=== PATIENT | female | born 1980 | race Caucasian/White ===

== ENCOUNTER 2017-12-31 12:45 | Emergency (ER) | payer OTHER ==
[~2017-12-31] VITALS: Ht 172.7 cm; Wt 90.7 kg
[2017-12-31 13:33] LABS: ABSOLUTE EOSINOPHILS 0.2 thou/uL (0.0-0.7); ABSOLUTE MONOCYTES 0.4 thou/uL (0.0-1.2); ABSOLUTE NEUTROPHILS 2.7 thou/uL (1.6-8.1); BASOPHILS 0.8 %; EOSINOPHILS 3.2 %; HEMATOCRIT 41.9 % (37.0-47.0); HEMOGLOBIN 14.5 gm/dL (12.0-15.0); LYMPHOCYTES 37.5 %; MCH 34.2 pg (26.0-34.0); MCHC 34.6 g/dL (28.0-37.0); MCV 98.8 fL (80.0-100.0); MONOCYTES 7.2 %; NUCLEATED RBCS 0 /100WBC; PLATELET COUNT* 279 thou/uL (150-400); POLYS 51.3 %; RBC 4.24 mil/uL (4.20-5.00); RDW-CV 13.2 % (10.5-14.5); WBC 5.3 thou/uL (4.0-11.0)
[2017-12-31 13:40] LABS: CALCIUM 8.8 mg/dL (8.5-10.1); CREATININE 0.8 mg/dL (0.6-1.3); POTASSIUM 3.7 mmol/L (3.5-5.1)
[2017-12-31 13:44] LABS: ALBUMIN 3.8 g/dL (3.4-5.0); TOTAL BILIRUBIN 0.3 mg/dL (<0.1-1.0); TOTAL PROTEIN 7.8 g/dL (6.4-8.2)
[2017-12-31] MEDS ORDERED: AUGMENTIN 875-1 EACH PO (14:13)
[2017-12-31 14:18] VITALS: BP 126/77
== END 2017-12-31 14:19 | disposition home or self-care (01) ==
LOC: M.ERS 12:45
PROVIDERS: Family Medicine
DX: R59.0 Localized enlarged lymph nodes (principal)

== ENCOUNTER 2018-02-01 14:13 | Emergency (ER) | payer OTHER ==
[~2018-02-01] VITALS: Ht 175.3 cm; Wt 90.7 kg
[~2018-02-01 14:13] MED LIST: AUGMENTIN 875-1 EACH PO
[2018-02-01] MEDS ORDERED: AMOXICILLIN 50500 M1 PO (14:48)
[2018-02-01 14:56] VITALS: BP 137/73
== END 2018-02-01 14:56 | disposition home or self-care (01) ==
LOC: M.ERS 14:13
DX: H66.92 Otitis media, unspecified, left ear (principal); F17.210 Nicotine dependence, cigarettes, uncomplicated

== ENCOUNTER 2018-05-28 07:02 | Emergency (ER) | payer OTHER ==
[~2018-05-28] VITALS: Ht 175.3 cm; Wt 90.7 kg
[~2018-05-28 07:02] MED LIST changes: +AMOXICILLIN 50500 M1 PO
[2018-05-28] MEDS ORDERED: PENICILLIN VK500 MG PO (07:37)
[2018-05-28] MEDS ORDERED: HYDROCODON-ACE1 EAC7 PO (07:38)
[2018-05-28 07:47] VITALS: BP 123/88
== END 2018-05-28 07:48 | disposition home or self-care (01) ==
LOC: M.ERS 07:02
DX: K04.7 Periapical abscess without sinus (principal)

== ENCOUNTER 2019-01-29 17:11 | Emergency (ER) | payer OTHER ==
[~2019-01-29] VITALS: Ht 177.8 cm; Wt 90.7 kg
[~2019-01-29 17:11] MED LIST changes: +HYDROCODON-ACE1 EAC7 PO; +PENICILLIN VK500 MG PO
[2019-01-29] MEDS ORDERED: LIDOCAINE VISC100 ML SWISH&SPIT (17:40)
[2019-01-29] MEDS ORDERED: TYLENOL WITH CO1 TA1 PO (17:40)
[2019-01-29] MEDS ORDERED: AMOXICILLIN 50500 MG PO (17:40)
[2019-01-29 17:53] VITALS: BP 150/88
== END 2019-01-29 17:55 | disposition home or self-care (01) ==
LOC: M.ERS 17:11
DX: K04.7 Periapical abscess without sinus (principal)